=== PATIENT | female | born 1940 | race Caucasian/White ===

== ENCOUNTER 2017-05-28 12:52 | Emergency (ER) | payer MEDICARE, OTHER ==
[~2017-05-28] VITALS: Ht 170.2 cm; Wt 88.6 kg
[2017-05-28 13:46] VITALS: BP 182/76; PULSE 18; PULSE 95; RESP 18; TEMP 98.5; O2SAT 96
--- NOTE | 2017-05-28 14:14 | PD ---
HPI Chief Complaint: Injury Time Seen by Provider: 14:01 Travel History International Travel<30 days: No Contact w/Intl Traveler<30days: No Traveled to known affect area: No History of Present Illness HPI 76-year-old female presents emergency department with ongoing left elbow pain currently in a sugar tong splint for reported fracture status post pulling up we would mats at her house. Patient states this happened about a week ago when she heard something "pop". Patient went to [facility], had x-rays performed, and splint placed. She went to her own orthopedic DrSteve Hanson, and was informed he "does not do elbows". Patient is concerned about getting close follow-up. She did call the [facility], and has an appointment on 12 June. Pain is 6 out of 10. Patient denies numbness or tingling of the right hand. She does not have a sling on the cast. She is allergic to chloroquine. [facility] Social History Alcohol Use: Yes Tobacco Use: No Substance Use: No Allergies-Medications (Allergen,Severity, Reaction): Coded Allergies: chlorquinaldol (Verified Allergy, Unknown, 05/28/17) Reported Meds & Prescriptions Reported Meds & Active Scripts Active Reported Fenofibrate 160 Mg Tab 160 Mg PO DAILY Glipizide 5 Mg Tab 2.5 Mg PO DAILY Take 30 minutes before a meal Glipizide 5 Mg Tab 5 Mg PO DAILY Take 30 minutes before a meal Mobic (Meloxicam) 7.5 Mg Tab 7.5 Mg PO DAILY Flexeril (Cyclobenzaprine HCl) 5 Mg Tab 5 Mg PO DAILY Requip (Ropinirole HCl) 0.25 Mg Tab 0.25 Mg PO BID Hydrocodon-Acetamin 7.5-325/15 (Hydrocodone/Acetaminophen) 7.5 Mg-325 Mg/15 Ml ( 15 Ml) Solution DIRECTED Celexa (Citalopram Hydrobromide) 10 Mg Tab 20 Mg PO DAILY Review of Systems Except as stated in HPI: all other systems reviewed are Neg General / Constitutional: No: Fever Eyes: No: Visual changes HENT: No: Headaches Cardiovascular: No: Chest Pain or Discomfort Respiratory: No: Shortness of Breath Gastrointestinal: No: Abdominal Pain Genitourinary: No: Dysuria Musculoskeletal: Positive: Arthralgias, Limited ROM, Pain (See history of present illness per) Skin: No Rash Neurologic: No: Weakness Psychiatric: No: Depression Endocrine: No: Polydipsia Hematologic/Lymphatic: No: Easy Bruising Physical Exam Narrative GENERAL: Patient appears in no obvious distress per SKIN: Warm and dry. Normal color. Normal turgor. HEAD: Atraumatic. Normocephalic. EYES: Pupils equal and round. No scleral icterus. No injection or drainage. ENT: No nasal bleeding or discharge. Mucous membranes pink and moist. NECK: Trachea midline. No JVD. CARDIOVASCULAR: Regular rate and rhythm. RESPIRATORY: No accessory muscle use. Clear to auscultation. Breath sounds equal bilaterally. GASTROINTESTINAL: Abdomen soft, non-tender, nondistended. Hepatic and splenic margins not palpable. MUSCULOSKELETAL: Extremities without clubbing, cyanosis, or edema. No obvious deformities. Right elbow splint is maintained. Patient has normal neurovascular exam of the right hand and fingers. Normal case preparer and liner strength is noted on the right. NEUROLOGICAL: Awake and alert. No obvious cranial nerve deficits. Motor grossly within normal limits. Five out of 5 muscle strength in the arms and legs. Normal speech. PSYCHIATRIC: Appropriate mood and affect; insight and judgment normal. Data Data Last Documented VS Vital Signs Date Time Temp Pulse Resp B/P (MAP) Pulse Ox O2 Delivery O2 Flow Rate FiO2 05/28/17 13:46 98.5 95 18 182/76 (111) 96 Orders Orders Elbow, Limited (Ap&Lat) (05/28/17 14:14) Splint Or Brace Apply/Monitor (05/28/17 14:14) [facility] Medical Decision Making Medical Screen Exam Complete: Yes Emergency Medical Condition: Yes Differential Diagnosis Right elbow sprain. Right elbow fracture. Need for orthopedic follow-up Narrative Course Repeat x-rays are obtained of the right elbow Sling is placed over the cast that is currently in place. Right elbow x-ray shows lateral epicondyle avulsion fracture. Recommend patient try calling Dr. Urbina's office for follow-up versus keeping her appointment with Dr. Doyle's office on the . Patient should maintain the splint and sling until that appointment Patient should use ice to the area as well as take Tylenol as needed for pain. Diagnosis Primary Impression: Avulsion fracture of lateral epicondyle of humerus Qualified Codes: S42.434D - Nondisplaced fracture (avulsion) of lateral epicondyle of right humerus, subsequent encounter for fracture with routine healing Referrals: Mesfin Urbina MD Patient Instructions: General Instructions, Splint Care (ED) Additional Instructions: Repeat x-rays are obtained of the right elbow Sling is placed over the cast that is currently in place. Right elbow x-ray shows lateral epicondyle avulsion fracture. Recommend patient try calling Dr. Urbina's office for follow-up versus keeping her appointment with Dr. Doyle's office on the . Patient should maintain the splint and sling until that appointment Patient should use ice to the area as well as take Tylenol as needed for pain. Disposition: 01 DISCHARGE HOME Condition: Stable Peng Melchor May 28, 2017 14:14
[2017-05-28] MEDS ORDERED: CELE10TA PO (14:19)
[2017-05-28] MEDS ORDERED: MOBI7.5T PO (14:22)
[2017-05-28] MEDS ORDERED: CYCL5TAB PO (14:22)
[2017-05-28] MEDS ORDERED: HYDR1SOL6 (14:22)
[2017-05-28] MEDS ORDERED: ROPI.25 PO (14:22)
[2017-05-28] MEDS ORDERED: GLIP5TAB8 PO (14:24)
[2017-05-28] MEDS ORDERED: FENO160T PO (14:24)
--- NOTE | 2017-05-28 15:17 | RADRPT ---
EXAM DATE/TIME: 05/28/2017 14:43 [facility] COMPARISON: No previous studies available for comparison. INDICATIONS : Right elbow pain after pulling. MEDICAL HISTORY : None. SURGICAL HISTORY : None. ENCOUNTER: Initial ACUITY: 4 - 6 days PAIN SCORE: 7/10 LOCATION: Right lateral elbow FINDINGS: There is a bone fragment adjacent to the lateral epicondyle of the right distal humerus consistent wi th possible avulsion fracture. Clinical correlation is recommended. CONCLUSION: Bone fragment adjacent to the lateral epicondyle of the right distal humerus consiste nt with possible avulsion fracture. Clinical correlation is recommended. Rishabh Hutchinson MD on May 28, 2017 at 15:06 Board Certified Radiologist. This report was verified electronically.
== END 2017-05-28 15:19 | disposition home or self-care (01) ==
LOC: NEPK 12:52
DX: S42.434A Nondisplaced fracture (avulsion) of lateral epicondyle of right humerus, initial encounter for closed fracture (principal); X58.XXXA Exposure to other specified factors, initial encounter
CPT/HCPCS: 73070; 99283

== ENCOUNTER → 2017-07-27 | Outpatient (CLI) | payer MEDICARE, OTHER ==
[~2017-07-27] MED LIST: AMOX500T PO; CELE10TA PO; CELE200C PO; CITA20TA4 PO; CYCL5TAB PO; DIAZ5TAB PO; FENO160T PO; FENO50TA PO; GLIP5TAB8 PO; HYDR-3580 PO; HYDR1SOL6; LIDO1PAD52 TOPICAL; MOBI7.5T PO; OMEP40CA2 PO; ROPI.25 PO; ROPI2TAB PO
[2017-07-27 08:58] LABS: BILIRUBIN, URINE NEG (NEG); BLOOD, URINE NEG (NEG); GLUCOSE,URINE NEG (NEG); KETONE, URINE NEG (NEG); NITRITE,URINE NEG (NEG); PH, URINE 6.5 (5.0-8.5); SQUAMOUS EPITHELIAL CELL URINE <1 /hpf (0-5); URINE COLOR LIGHT-YELLOW (YELLW/STRAW); URINE LEUKOCYTE ESTERASE NEG (NEG)
[2017-07-27 09:11] LABS: PROTHROMBIN TIME - PATIENT 10.2 SEC (9.8-11.6)
[2017-07-27 09:11] LABS: HEMATOCRIT 42.6 % (35.0-46.0); HEMOGLOBIN 14.5 GM/DL (11.6-15.3); MEAN CORPUSCULAR HEMOGLOBIN 31.3 PG (27.0-34.0); MEAN CORPUSCULAR HGB CONC 34.1 % (32.0-36.0); MEAN PLATELET VOLUME 9.6 FL (7.0-11.0); PLATELET COUNT 265 TH/MM3 (150-450); RED BLOOD COUNT 4.64 MIL/MM3 (4.00-5.30); RED CELL DISTRIBUTION WIDTH 12.4 % (11.6-17.2); WHITE BLOOD COUNT 6.3 TH/MM3 (4.0-11.0)
[2017-07-27 09:27] LABS: CALCIUM 10.3 MG/DL (8.5-10.1); CREATININE 0.9 MG/DL (0.50-1.00)
--- NOTE | 2017-07-27 15:44 | EKG ---
Date Performed: 07/27/2017 Time Performed: 08:39:22 PTAGE: 76 years EKG: Sinus rhythm WITH SINUS ARRHYTHMIA NORMAL ECG Since the PREVIOUS TRACING , no significant change noted PREVIOUS TRACIN06/12/1996 14.12 DOCTOR: Justin Miner Interpretating Date/Time 07/27/2017 15:43:04
== END ==
LOC: CPRE 08:03
PROVIDERS: ATTEND Orthopaedic Surgery
DX: Z01.810 Encounter for preprocedural cardiovascular examination (principal); Z01.812 Encounter for preprocedural laboratory examination; Z01.818 Encounter for other preprocedural examination; M16.12 Unilateral primary osteoarthritis, left hip; M79.609 Pain in unspecified limb
CPT/HCPCS: 36415; 80048; 81001; 85027; 85610; 85730; 93005

== ENCOUNTER 2017-08-06 05:20 | Inpatient (IN) | payer MEDICARE, OTHER ==
[~2017-08-06] VITALS: Ht 170.2 cm; Wt 91.6 kg
[~2017-08-06 05:20] MED LIST changes: -CELE10TA PO; -FENO160T PO; -HYDR1SOL6; -MOBI7.5T PO; -ROPI.25 PO
[2017-08-06] MEDS ORDERED: GENTAMICIN SULFATE 80 MG/2 ML VIAL ONE (05:57)
[2017-08-06] MEDS ORDERED: MIDAZOLAM HCL 2 MG/2 ML VIAL ONE (06:25)
[2017-08-06] MEDS ORDERED: PROPOFOL 500 MG/50 ML INJ 0 ML ONE (06:25)
[2017-08-06] MEDS ORDERED: ACETAMINOPHEN 1000 MG/100 ML 100 ML IV ONE (06:25)
[2017-08-06] MEDS ORDERED: FAMOTIDINE 20 MG/2 ML VIAL ONE (06:26)
[2017-08-06] MEDS ORDERED: METOPROLOL TARTRATE 25 MG TAB PO PRN (06:30)
[2017-08-06] MEDS ORDERED: LACTATED RINGER'S 1000 ML IV PRN (06:30)
[2017-08-06] MEDS ORDERED: ceFAZolin 2 GM PREMIX 50 ML IV SCH (06:30)
[2017-08-06] MEDS ORDERED: POVIDONE IODINE 5% (ANTISEPSIS KIT) 4 APPLICATIONS EACH NARE PRN (06:30)
[2017-08-06] MEDS ORDERED: CHLORHEXIDINE GLUCONATE 2 % 1 PACK (2 CLOTHS) TOPICAL PRN (06:30)
[2017-08-06] MEDS ORDERED: SODIUM CHLORID 0.9% 500 ML IV PRN (06:30)
[2017-08-06] MEDS ORDERED: CHLORHEXIDINE GLUCONATE 4% SOLN 120 ML BTL TOPICAL SCH (06:30)
[2017-08-06] MEDS ORDERED: TRANEXAMIC ACID IV SCH ×2 (07:00→10:00)
[2017-08-06] MEDS ORDERED: MORPHINE SULFATE 4 MG/ML INJ IV PUSH PRN (07:00)
[2017-08-06] MEDS ORDERED: TRANEXAMIC ACID INJ 0 MG in SODIUM CHLORIDE 0.9% INJ 100 ML IV SCH (07:00)
[2017-08-06] MEDS ORDERED: SODIUM CHLORIDE 0.9% IV SCH ×2 (07:00→10:00)
[2017-08-06] MEDS ORDERED: EXPAREL PERI-ARTICULAR INJECTION (TOTAL VOL. 100 ML) P-ARTICULR SCH ×2 (07:00)
[2017-08-06] MEDS ORDERED: MAGNESIUM HYDROXIDE SUSP 30 ML CUP PO PRN (07:00)
--- NOTE | 2017-08-06 07:03 | HHI.FF ---
Face to Face Verification Diagnosis: (1) Status post total replacement of left hip Physical Therapy Gait training Hip: Total hip, Protocol: Left, Posterior hip precautions, Progress to weight bearing Canvas Knee Splint: When in bed & 2 pillows btw thighs Left LE Weight Bearing: WB as tolerated Nursing Nursing: Dressing changes Dressing Changes: Daily dressing change, Coverderm/Primapore Additional Instructions Do not remove Dermabond Prineo. I have seen patient Madonna Goyal on 08/06/17. My clinical findings support the need for the requested home health care services because: Ltd mobility - disease progression Limited ability to care for self High risk of falls I certify that my clinical findings support that this patient is homebound because: Post-op weakness Unsteady gait/balance Unsafe to leave home unassisted Nani Pa MD ([facility]) Aug 06, 2017 07:03
[2017-08-06] MEDS ORDERED: HYDROmorphone HCL PF 2 MG/ML VIAL ONE (08:02)
[2017-08-06] MEDS: CITALOPRAM HYDROBROMIDE 20 MG TAB PO SCH (09:00)
[2017-08-06] MEDS: KETOROLAC TROMETHAMINE 30 MG/ML (IVP) VIAL IVP SCH ×3 (09:00→20:38)
[2017-08-06] MEDS ORDERED: CYCLOBENZAPRINE HCL 10 MG TAB PO PRN (09:00)
[2017-08-06] MEDS ORDERED: ASPIRIN EC 81 MG TABEC PO SCH (09:00)
[2017-08-06] MEDS ORDERED: PANTOPRAZOLE SOD 40 MG DELAYED RELEASE TAB PO PRN (09:00)
[2017-08-06] MEDS ORDERED: ACETAMINOPHEN/HYDROcodone 325 MG/7.5 MG TAB PO PRN (09:00)
[2017-08-06] MEDS ORDERED: ONDANSETRON ODT 4 MG TAB PO PRN (09:30)
--- NOTE | 2017-08-06 09:31 | PD.OP ---
Operative Report Date of Surgery: Aug 06, 2017 Preoperative Diagnosis: (1) Primary osteoarthritis of left hip Postoperative Diagnosis: (1) Primary osteoarthritis of left hip Procedure: Left total hip arthroplasty with Coleman prosthesis Anesthesia: General endotracheal with supplemental local with Exparel Surgeon: Joshua Pa MD Cardiovascular Disease Specialist(s): STEFANIE Gupta Operation and Findings: Indications and Findings: This 76-year-old woman has had left hip pain for the past 4-5 years which has been nonresponsive to conservative measures and has progressively worsened over time. Her ambulation tolerance is significantly limited. She has pain in the left hip in the groin with pain on walking pain and pain ambulate and activities of daily living. She has been treated with analgesics, anti-inflammatory agents, activity modification, intra-articular corticosteroids and ambulatory aids. She has not responded to conservative measures. Physical findings showed limited range of motion of the left hip with tenderness on motion, a positive Juan test and an antalgic gait. Radiographic findings showed severe osteoarthritis with loss of articular cartilage to expose subchondral bone and there being subchondral edema in the acetabulum and femur with osteophytes. Operative findings: There is severe arthritis in the left hip with exposed subchondral bone in the acetabulum and the femur. There isosteophyte formation. There is eburnation. Implants: The acetabular component was a 50 mm external diameter Tritanium cluster shell with a 36 mm inner diameter, 0 X3 polyethylene liner. The femoral component was an Accolade 2 stem, size 4 with a 132 neck angle. The femoral head was Biolox Delta, 36 mm external diameter with a -5 mm offset. The patient was brought to the clean air operating suite and a general endotracheal anesthetic was administered. The patient was positioned into a lateral position with the operative hip up on a DesignGooroo lateral positioner. The hip and lower extremity were prepped with alcohol, Hibiclens and ChloraPrep and draped in the usual manner with the hip draped free. Patient received prophylactic antibiotics preoperatively. The patient also received tranexamic acid preoperatively. An appropriate timeout procedure was carried out. An incision was made from the midportion of the greater trochanter proximally and posteriorly paralleling the fibers of the gluteus holly. The incision was deepened through subcutaneous tissues down to the fascia criilo and gluteus fascia. The gluteus fascia was then split longitudinally in line with its fibers up to the upper portion of the fascia cirilo. With wound towels in place, the Charnley retractor was inserted. The sciatic nerve was identified and protected throughout the procedure. Dissection was then carried down to the interval between the gluteus minimus and the piriformis. A retractor was inserted. The piriformis and obturator conjoined tendon was released from the greater trochanter and reflected off the capsule. A capsulotomy was made longitudinally along the femoral neck to the base of the femoral neck and then curved distally along the posterior aspect of the greater trochanter. The hip was internally rotated. Further release of the external rotators was carried out exposing the hip. The hip was dislocated. The femoral neck was transected at the appropriate level using the oscillating saw placement of appropriate retractors. The femoral head was removed. Preparation of the femur was initiated with a box osteotome followed by a curet to identify the medullary canal. Broaching was then initiated with the size 0 broach and went in 1 size increments up to size 4. The broach handle was removed. The femoral neck was then trimmed with a calcar planar. Attention was then directed to the acetabulum. Soft tissues were debrided from the acetabulum. Retractors were placed about the acetabulum. Reaming was then initiated with the 43 millimeter reamer and went in 1-2 mm increments up to the 50 millimeter diameter reamer. A trial reduction with the 50 millimeter trial prosthesis was carried out. When this was deemed to be appropriate, the trial prosthesis was removed. The acetabulum was irrigated and cleaned. The actual prosthesis as noted above was impacted into place and seated appropriately. Drill holes were made and sounded. Appropriate sized screws were inserted to stabilize the acetabulum further. The liner as noted above was inserted into the acetabular shell and impacted into place. Osteophytes were trimmed from the acetabulum. Local anesthetic was administered throughout the area of the acetabulum and anterior aspect of the femur. The trial neck was placed on the broach for the above-noted prosthesis. The femoral head trial was placed onto the femoral neck . A trial reduction was carried out. Adjustment was made as needed. The stability, leg length and motion were excellent. There was no pistoning. The trial prosthesis was removed. The broach was removed. The femoral component was impacted into the medullary canal of the femur after irrigation and suctioning. When this was appropriately seated a trial reduction was again carried out with the trial prosthesis. There was no pistoning. The leg length was appropriate. The stability and motion were excellent. The trial prosthesis was then removed. After cleaning and drying the trunion of the femoral component, the above-noted femoral head was impacted onto the trunnion. The hip was reduced. The stability and mobility were again checked along with leg lengths as noted above. The hip was positioned appropriately and closure commenced after the remainder of the local anesthetic was injected throughout the hip. The external rotators and capsule were repaired with #1 Vicryl interrupted transosseous sutures with a Krakw technique to reattach the external rotators and capsule to the posterior aspect of the greater trochanter. The capsule itself on the superior aspect was closed with #1 Vicryl interrupted [id number] sutures. The sciatic nerve was inspected. The fascia cirilo and gluteus fascia were repaired with #1 Vicryl interrupted [id number] sutures. The subcutaneous tissues were closed with 2-0 Vicryl interrupted simple sutures with buried knots. The skin was closed with a continuous subcuticular closure of 4-0 Monocryl. The wound was then approximated with Dermabond Prineo. A silver impregnated dressing was applied to the hip. A knee immobilizer was applied to the leg. The patient was transferred from the operating room to the recovery room in satisfactory condition having tolerated the procedure well. Counts are correct. Specimens: None. Estimated blood loss: 200 mL Nani Pa MD ([place]) Aug 06, 2017 09:31
[2017-08-06] MEDS ORDERED: HYDR-3580 PO (09:35)
[2017-08-06] MEDS ORDERED: ECASA81 PO (09:35)
[2017-08-06] MEDS ORDERED: DO NOT ADM ANY ANTICOAGULANT DRUGS PRN (09:42)
[2017-08-06] MEDS: LACTATED RINGER'S 1000 ML INJ 1,000 ML IV SCH ×2 (10:00→20:39)
[2017-08-06] MEDS ORDERED: BISACODYL 10 MG SUPP RECTAL PRN (10:00)
[2017-08-06] MEDS ORDERED: Post-op Orders (for Pharmacy) XX ONE (10:00)
--- NOTE | 2017-08-06 10:19 | RADRPT ---
EXAM DATE: 08/06/2017 10:16 AM EDT AGE/SEX: 76 years / Female INDICATIONS: Post operative left hip. CLINICAL DATA: This is the patient's initial encounter. Patient reports that signs and symptoms have been present for 1 day and indicates a pain score of Nonresponsive. MEDICAL/SURGICAL HISTORY: None. . Total right hip replacement. COMPARISON: No prior exams available for comparison. FINDINGS: There is a left total hip prosthesis present. The acetabular component is secured by a single screw s uperiorly. The acetabular and femoral components appear well placed. There is some hypertrophic worthy e seen superior to the greater trochanter. CONCLUSION: Good placement of a left total hip prosthesis. Electronically signed by: Dada Feliz MD 08/06/2017 10:18 AM EDT
--- NOTE | 2017-08-06 10:35 | PD.CONS ---
HPI Service [facility] Hospitalists Consult Requested By Dr. Pa, Orthopedic service Reason for Consult Assist with medical management Primary Care Physician Cayetano Castellanos M.D. Diagnoses: History of Present Illness This is a 76 yo female with a PMHX significant for DM, HLD, RLS and severe osteoarthritis of the left hip who tried and failed numerous attempts at conservative treatment of her left hip pain and underwent an elective left total hip arthroplasty performed by Dr. Pa today. Hospitalist services have been consulted to assist with ongoing medical management. Patient is still very groggy in PACU and is not a very good historian at present. She denies any complaints of pain at present. She denies any fever or chills. She denies any chest pain or dyspnea. She denies any nausea, vomiting or abdominal pain. She lives alone and uses a cane to aid with ambulation. Review of Systems Except as stated in HPI: all other systems reviewed are Neg Past Family Social History Allergies: Coded Allergies: chlorquinaldol (Verified Allergy, Unknown, ANXIETY AND SEVERE INTERNAL MUSCLE SPASMS, 08/06/17) atorvastatin (Verified Adverse Reaction, Unknown, MUSCLE ACHES AND PAINS, 08/06/17) metoclopramide (Verified Adverse Reaction, Unknown, ANXIETY, 08/06/17) Past Medical History Osteoarthritis left hip DM HLD RLS Depression/Anxiety Past Surgical History Partial hysterectomy 1979 Bladder repair Cholecystectomy 1997 Right temporal artery bx 2004 Right knee arthroscopy [address] MODESTO [address] Hanson Cataract sx Reported Medications Hydrocodone-Acetamin 7.5-325 (Hydrocodone/Acetaminophen) 7.5 Mg-325 Mg Tablet 1 Tab PO Q4H PRN Amoxicillin 500 Mg Tab 4 Tab PO ONCE TAKE ONE HOUR PRIOR TO DENTAL WORK Lidocaine Patch 12 HR (Lidocaine) 5 % Patch 1 Patch TOPICAL DAILY Remove patch after 12 hours Diazepam 5 Mg Tab 5 Mg PO HS PRN Ropinirole 2 Mg Tab 2 Mg PO BID Hydrocodone-Acetamin 7.5-325 (Hydrocodone/Acetaminophen) 7.5 Mg-325 Mg Tablet 1 Tab PO TID Citalopram (Citalopram Hydrobromide) 20 Mg Tab 20 Mg PO DAILY Celebrex (Celecoxib) 200 Mg Cap 200 Mg PO BID PRN Omeprazole 40 Mg Cap 40 Mg PO DAILY PRN Tricor (Fenofibrate) 145 Mg Tab 145 Mg PO HS Takw with food. Glipizide 5 Mg Tab 2.5 Mg PO HS Take 30 minutes before a meal Glipizide 5 Mg Tab 5 Mg PO DAILY Take 30 minutes before a meal Flexeril (Cyclobenzaprine HCl) 5 Mg Tab 0.5-1 Tab PO BID PRN Active Ordered Medications Current Medications Medications (Trade) Dose Ordered Sig/Maged Route Start Time Stop Time Status Last Admin Lactated Ringer's 1,000 ml @ 30 mls/hr Q24H PRN IV 08/06/17 06:30 08/09/17 06:29 08/06/17 06:10 Sodium Chloride 500 ml @ 30 mls/hr [id number] PRN IV 08/06/17 06:30 08/09/17 06:29 (Lopressor) 25 mg GRADER MARKER PRN PO 08/06/17 06:30 08/09/17 06:29 (Betadine 5% Antisepsis Kit) 1 applic GRADER MARKER PRN EACH NARE 08/06/17 06:30 08/09/17 06:29 08/06/17 06:15 (Chlorhexidine 2% Cloth) 3 pack GRADER MARKER PRN TOPICAL 08/06/17 06:30 08/09/17 06:29 08/06/17 06:05 (Hibiclens 4% Top Soln) 1 applic ONCE TOPICAL 08/06/17 06:30 08/09/17 06:29 08/06/17 06:34 Cefazolin Sodium/ Dextrose 50 ml @ 100 mls/hr GRADER MARKER IV 08/06/17 06:30 08/07/17 06:29 08/06/17 07:19 Tranexamic Acid 916 mg/Sodium Chloride 109.16 ml @ 200 mls/ hr ONCE IV 08/06/17 07:00 08/06/17 13:00 08/06/17 07:11 Tranexamic Acid 916 mg/Sodium Chloride 109.16 ml @ 200 mls/ hr ONCE IV 08/06/17 10:00 08/06/17 16:00 Bupivacaine Liposome 20 ml/ Sodium Chloride 100 ml @ 200 mls/hr ONCE P-ARTICULR 08/06/17 07:00 08/06/17 13:00 08/06/17 07:35 Lactated Ringer's 1,000 ml @ 80 mls/hr [id number] IV 08/06/17 09:00 08/06/17 10:00 Cefazolin Sodium 1000 mg/Sodium Chloride 110 ml @ 220 mls/hr Q6H IV 08/06/17 13:00 08/07/17 01:29 (Morphine Inj) 4 mg Q3H PRN IV PUSH 08/06/17 07:00 ([place]cliff 7.5-325 Mg) 1 tab Q4H PRN PO 08/06/17 09:00 ([place]iff 7.5-325 Mg) 2 tab Q4H PRN PO 08/06/17 09:00 (Toradol Inj) 15 mg Q6H IVP 08/06/17 09:00 08/08/17 03:01 08/06/17 09:00 (Zofran Odt) 4 mg Q6H PRN PO 08/06/17 09:30 (Colace) 100 mg BID PO 08/07/17 21:00 (Ambien) 5 mg HS PRN PO 08/06/17 21:00 (Dulcolax Supp) 10 mg DAILY PRN RECTAL 08/06/17 10:00 (Milk Of Magnesia Liq) 30 ml DAILY PRN PO 08/06/17 07:00 (Ecotrin Ec) 81 mg BID PO 08/06/17 09:00 (CeleBREX) 200 mg BID PRN PO 08/06/17 07:00 UNV (CeleXA) 20 mg DAILY PO 08/06/17 09:00 (Flexeril) 2.5 mg BID PRN PO 08/06/17 09:00 (Valium) 5 mg HS PRN PO 08/06/17 21:00 (Tricor) 145 mg HS PO 08/06/17 21:00 (Glucotrol) 2.5 mg HS PO 08/06/17 21:00 (Glucotrol) 5 mg DAILY PO 08/06/17 10:00 (Lidoderm 5% Patch.12 Hr) 1 patch DAILY T-DERMAL 08/06/17 09:00 (Requip) 2 mg BID PO 08/06/17 10:00 (Protonix) 40 mg DAILY PRN PO 08/06/17 09:00 Miscellaneous Information 1 Q24H T-DERMAL 08/06/17 21:00 ([facility] Nursing Information) ALL NURSING DEPARTME... UNSCH PRN .XX 08/06/17 09:42 08/07/17 09:41 Family History Father, age 64, lung cancer Mother, , complications from rheumatoid arthritis Siblings x 2, lung cancer, CVA Sister, lupus, RA, OA Social History Patient is . She denies any tobacco use, EtOH consumption or illicit drug use. Physical Exam Vital Signs Vital Signs Date Time Temp Pulse Resp B/P (MAP) Pulse Ox O2 Delivery O2 Flow Rate FiO2 08/06/17 06:10 97.6 95 20 157/72 (100) 94 Physical Exam GENERAL: This is a well-nourished, well-developed overweight female patient, in no apparent distress. Lethargic in PACU. Appears comfortable. SKIN: No rashes, ecchymoses or lesions. Cool and dry. HEAD: Atraumatic. Normocephalic. No temporal or scalp tenderness. EYES: Pupils equal round and reactive. Extraocular motions intact. No scleral icterus. No injection or drainage. ENT: Nose without bleeding or purulent drainage. Throat without erythema, tonsillar hypertrophy or exudate. Uvula midline. Airway patent. NECK: Trachea midline. No lymphadenopathy. Supple, nontender, no meningeal signs. CARDIOVASCULAR: Tachycardic without murmurs, gallops, or rubs. RESPIRATORY: Fair air entry. Clear to auscultation. Breath sounds equal bilaterally. No wheezes, rales, or rhonchi. GASTROINTESTINAL: Abdomen soft, non-tender, nondistended. No hepato-splenomegaly , or palpable masses. No guarding. MUSCULOSKELETAL: Extremities without clubbing, cyanosis, or edema. No calf tenderness. s/p left MODESTO with incision covered by postop dressing that is C/D/ I. LLE in knee immobilizer. Distal pulses 2+. NEUROLOGICAL: Lethargic. Cranial nerves II through XII grossly intact. Motor and sensory grossly within normal limits. No focal neurologic findings appreciated. Normal speech. Imaging Last Impressions Hip X-Ray 08/06/17 0656 Signed Impressions: CONCLUSION: Good placement of a left total hip prosthesis. Assessment and Plan Assessment and Plan 76 yo female with a PMHX significant for DM, HLD, RLS and severe osteoarthritis of the left hip who tried and failed numerous attempts at conservative treatment and underwent an elective left total hip arthroplasty performed by Dr. Pa today. Hospitalist services have been consulted to assist with ongoing medical management. Severe osteoarthritis left hip, tried and failed numerous attempts at conservative treatment s/p elective left total hip arthroplasty by Dr. Pa -management per Ortho -pain management with bowel regimen -PT eval/tx per ortho -monitor for wound healing -monitor CBC for postop anemia of acute blood loss DM, poorly controlled at present, BS 246 -continue on home dose of Glipizide -accucheks and ISS -monitor blood sugar trend -change to heart health diabetic diet -obtain HgbA1c Hypertensive, no reported hx of HTN -Vasotec IV or Clonidine po prn with parameters -continue to monitor BP and may need to initiate antihypertensive treatment if indicated HLD -continue on Tricor RLS -continue on home dose of Requip Depression/Anxiety -continue patient on home dose of Celexa -continue patient on Diazepam prn DVT prophylaxis -bilateral SCDs and ASA 81mg BID per Ortho Thank you very kindly for this consultation. We will continue to follow patient along with you. Discussed Condition With patient, nursing staff and Sara Fenton Aug 06, 2017 10:35
[2017-08-06] MEDS ORDERED: INSULIN ASPART 1,000 UNITS/10 ML VIAL SQ ONE (10:42)
[2017-08-06] MEDS ORDERED: DEXTROSE 50% IN WATER 50 ML VIAL(D50) IV PUSH PRN (10:45)
[2017-08-06] MEDS ORDERED: GLUCAGON 1 MG/ML VIAL OTHER PRN (10:45)
[2017-08-06] MEDS ORDERED: *morphine SULFATE 8 MG/ML PERIprocedure ONLY ONE (10:51)
[2017-08-06 11:20] VITALS: BP 141/74; PULSE 84; RESP 18; TEMP 97.3; O2SAT 95
[2017-08-06] MEDS ORDERED: cloNIDine HCL 0.1 MG TAB PO PRN (11:30)
[2017-08-06] MEDS ORDERED: ENALAPRILAT 1.25 MG/ML VIAL IV PUSH PRN (11:30)
[2017-08-06] MEDS ORDERED: ONDANSETRON HCL 4 MG/2 ML VIAL IV PUSH ONE (12:00)
[2017-08-06] MEDS ORDERED: ROCURONIUM INJ 50 MG/5 ML SYRINGE IV PUSH ONE (12:00)
[2017-08-06] MEDS ORDERED: KETOROLAC TROMETHAMINE 30 MG/ML (IVP) VIAL IV PUSH ONE (12:00)
[2017-08-06] MEDS ORDERED: DEXAMETHASONE SOD PHOS 4 MG/ML VIAL IV ONE (12:00)
[2017-08-06] MEDS ORDERED: LACTATED RINGER'S 1000 ML INJ 1,000 ML IV ONE (12:00)
[2017-08-06] MEDS ORDERED: PROPOFOL 200 MG/20 ML AMP IV ONE (12:00)
[2017-08-06] MEDS ORDERED: ESMOLOL HCL 100 MG/10 ML VIAL IV ONE (12:00)
[2017-08-06] MEDS ORDERED: GLYCOPYRROLATE 1 MG/5 ML SYRINGE IV PUSH ONE (12:00)
[2017-08-06] MEDS ORDERED: NEOSTIGMINE 5 MG/5 ML SYRINGE IV PUSH ONE (12:00)
[2017-08-06] MEDS ORDERED: LIDOCAINE HCL 1% PF 5 ML SYRINGE OTHER ONE (12:00)
[2017-08-06] MEDS: INSULIN ASPART SUPPLEMENTAL SCALE SQ SCH ×3 (12:00→21:03)
[2017-08-06] MEDS: CEFAZOLIN INJ 1,000 MG in SODIUM CHLORIDE 0.9% INJ 100 ML IV SCH ×2 (13:00→18:05)
[2017-08-06] MEDS: glipiZIDE 5 MG TAB PO SCH ×2 (13:14→20:37)
[2017-08-06] MEDS: ACETAMINOPHEN/HYDROcodone 325 MG/7.5 MG TAB PO PRN ×2 (13:40→20:38)
[2017-08-06] MEDS: LIDOCAINE HCL 5% PATCH T-DERMAL SCH (15:47)
[2017-08-06] MEDS: CELECOXIB 200 MG CAP PO SCH (16:42)
[2017-08-06 20:00] VITALS: BP 162/72; PULSE 96; RESP 18; TEMP 97.7; O2SAT 95
[2017-08-06] MEDS: FENOFIBRATE 145 MG TAB PO SCH (20:38)
[2017-08-06] MEDS: REMOVE OLD LIDOCAINE PATCH T-DERMAL SCH (20:39)
[2017-08-06] MEDS ORDERED: DIAZEPAM 5 MG TAB PO PRN (21:00)
[2017-08-06] MEDS ORDERED: ZOLPIDEM TARTRATE 5 MG TAB PO PRN (21:00)
[2017-08-07] VITALS (7 sets, daily range): BP systolic 127–171; BP diastolic 57–73; PULSE 93–100; RESP 16–18; TEMP 97.3–98.8; O2SAT 93–98
[2017-08-07] MEDS: CEFAZOLIN INJ 1,000 MG in SODIUM CHLORIDE 0.9% INJ 100 ML IV SCH (00:49)
[2017-08-07] MEDS: ACETAMINOPHEN/HYDROcodone 325 MG/7.5 MG TAB PO PRN ×4 (02:20→21:41)
[2017-08-07] MEDS: KETOROLAC TROMETHAMINE 30 MG/ML (IVP) VIAL IVP SCH ×4 (02:21→20:49)
[2017-08-07 05:43] LABS: BICARBONATE 25.5 MEQ/L (21.0-32.0); BLOOD UREA NITROGEN 17 MG/DL (7-18); CALCIUM 10.2 MG/DL (8.5-10.1); CHLORIDE 102 MEQ/L (98-107); CREATININE 0.95 MG/DL (0.50-1.00); GLOMERULAR FILTRATION RATE 57 ML/MIN (>89); GLUCOSE,RANDOM 156 MG/DL (74-106); SODIUM (NA) 138 MEQ/L (136-145)
--- NOTE | 2017-08-07 07:21 | PD.ORT.PN ---
Subjective Post Op Day #: 1 Subjective Remarks She is doing well. She has minimal complaints. She has been out of bed walking to the bathroom several times in the evening. There is some pain but not a great deal. She lives alone so she wants to go to a long-term facility for initial rehabilitation until she is stable. Distance Walked 70 feet with PT. Objective Vitals Vital Signs Date Time Temp Pulse Resp B/P (MAP) Pulse Ox O2 Delivery O2 Flow Rate FiO2 08/07/17 04:00 97.4 93 18 129/60 (83) 94 08/07/17 00:00 97.3 99 17 127/57 (80) 93 08/06/17 20:30 Room Air 08/06/17 20:00 97.7 96 18 162/72 (102) 95 08/06/17 18:08 18 08/06/17 15:39 18 08/06/17 11:20 97.3 84 18 141/74 (96) 95 08/06/17 11:00 84 16 144/60 (88) 99 Nasal Cannula 2 08/06/17 10:45 82 16 163/77 (105) 98 Nasal Cannula 2 08/06/17 10:30 82 16 172/79 (110) 99 Nasal Cannula 2 08/06/17 10:15 102 16 161/68 (99) 98 Nasal Cannula 2 08/06/17 10:00 86 16 141/65 (90) 98 Nasal Cannula 2 08/06/17 09:42 97.6 84 16 166/73 (104) 94 Nasal Cannula 2 I/O 08/06/17 08/06/17 08/06/17 08/07/17 08/07/17 08/07/17 07:00 15:00 23:00 07:00 15:00 23:00 Intake Total 250 ml 590 ml Output Total 200 ml 300 ml Balance 50 ml -300 ml 590 ml Intake Oral 480 ml IV Total 100 ml 110 ml Other 150 ml Output Urine Total 300 ml Estimated Blood Loss 200 ml # Voids 1 4 # Bowel Movements 0 Result Diagram: 08/07/17 0451 08/07/17 0457 Imaging Last 72 hours Impressions Hip X-Ray 08/06/17 0656 Signed Impressions: CONCLUSION: Good placement of a left total hip prosthesis. Objective Remarks She has been out of bed walking well with the walker and the standby assistance of the nursing assistants. She sits appropriately from a standing position. The neurovascular status is intact. The dressing is dry and intact. Assessment & Plan Ortho Post Op Day #: 1 Problem List: (1) Primary osteoarthritis of left hip ICD Codes: M16.12 - Unilateral primary osteoarthritis, left hip Status: Resolved (2) Status post total replacement of left hip ICD Codes: Z96.642 - Presence of left artificial hip joint Plan: Continue postop care and PT. Assessment and Plan Condition: Good. Orthopedically stable. DVT prophylaxis: TEDs, aspirin, sequentials. Discharge plans: Home with home health care after a short stay in a long-term facility. An appointment was scheduled through the office. Prescriptions: [place] 7.5/325 Nani Pa MD (Charles) Aug 07, 2017 07:21
[2017-08-07] MEDS: INSULIN ASPART SUPPLEMENTAL SCALE SQ SCH ×4 (07:54→21:01)
[2017-08-07] MEDS: ASPIRIN EC 81 MG TABEC PO SCH ×2 (08:15→20:49)
[2017-08-07] MEDS: CELECOXIB 200 MG CAP PO SCH (08:16)
[2017-08-07] MEDS: CITALOPRAM HYDROBROMIDE 20 MG TAB PO SCH (08:16)
[2017-08-07] MEDS: glipiZIDE 5 MG TAB PO SCH ×2 (08:16→20:49)
[2017-08-07] MEDS: LIDOCAINE HCL 5% PATCH T-DERMAL SCH (08:17)
[2017-08-07] MEDS: LACTATED RINGER'S 1000 ML INJ 1,000 ML IV SCH ×2 (08:18→20:49)
[2017-08-07] MEDS: REMOVE OLD LIDOCAINE PATCH T-DERMAL SCH (08:18)
[2017-08-07 11:25] LABS: HEMOGLOBIN A1C 7.2 % (4.3-6.0)
[2017-08-07] MEDS ORDERED: CYCLOBENZAPRINE HCL 10 MG TAB PO ONE (18:30)
--- NOTE | 2017-08-07 18:31 | HHI.PR ---
Subjective Remarks Follow-up for left total hip arthroplasty, diabetes, hypertension. Patient complains of left hip spasms throughout the hip and thigh. She states she had spasms when she had her right hip done also. She states Flexeril has worked for her in the past and she actually has this medication at home as needed. She otherwise denies any other medical complaints. Denies any fever/chills, lightheadedness, chest pain, shortness of breath, or abdominal complaints. She is tolerating oral intake. Discussed with RN. Objective Vitals Vital Signs Date Time Temp Pulse Resp B/P (MAP) Pulse Ox O2 Delivery O2 Flow Rate FiO2 08/07/17 16:00 98.1 99 16 151/67 (95) 98 08/07/17 12:00 97.3 100 16 137/62 (87) 94 08/07/17 08:00 96 Room Air 08/07/17 08:00 98.8 98 16 142/66 (91) 96 08/07/17 04:00 97.4 93 18 129/60 (83) 94 08/07/17 00:00 97.3 99 17 127/57 (80) 93 08/06/17 20:30 Room Air 08/06/17 20:00 97.7 96 18 162/72 (102) 95 I/O 08/06/17 08/06/17 08/06/17 08/07/17 08/07/17 08/07/17 06:59 14:59 22:59 06:59 14:59 22:59 Intake Total 250 ml 590 ml 720 ml Output Total 200 ml 300 ml Balance 50 ml -300 ml 590 ml 720 ml Intake Oral 480 ml 720 ml IV Total 100 ml 110 ml Other 150 ml Output Urine Total 300 ml Estimated Blood Loss 200 ml # Voids 1 4 6 # Bowel Movements 0 Result Diagram: 08/07/17 0451 08/07/17 0457 Imaging Last Impressions Hip X-Ray 08/06/17 0656 Signed Impressions: CONCLUSION: Good placement of a left total hip prosthesis. Objective Remarks GENERAL: Well-nourished, well-developed pleasant elderly female patient in [facility]. SKIN: Warm and dry. No rash. HEENT: Normocephalic. Atraumatic. Mucous membranes pink and moist. CARDIOVASCULAR: Regular rate and rhythm. No murmur appreciated. RESPIRATORY: No accessory muscle use. Clear to auscultation. Breath sounds equal bilaterally. GASTROINTESTINAL: Abdomen soft, non-tender, nondistended. Normoactive bowel sounds x4. MUSCULOSKELETAL: No obvious deformities. Extremities without clubbing, cyanosis , or edema. Left lateral hip with surgical dressing in place, CDI. NEUROLOGICAL: Awake and alert. No obvious cranial nerve deficits. Moving all extremities spontaneously. Normal speech. PSYCHIATRIC: Appropriate mood and affect; insight and judgment normal. Procedures 08/06/17 -left total hip arthroplasty by Dr. Pa Medications and IVs Current Medications Medications (Trade) Dose Ordered Sig/Maged Route Start Time Stop Time Status Last Admin Lactated Ringer's 1,000 ml @ 30 mls/hr Q24H PRN IV 08/06/17 06:30 08/09/17 06:29 08/06/17 06:10 Sodium Chloride 500 ml @ 30 mls/hr [id number] PRN IV 08/06/17 06:30 08/09/17 06:29 (Lopressor) 25 mg BUFFET WAITER/WAITRESS PRN PO 08/06/17 06:30 08/09/17 06:29 (Betadine 5% Antisepsis Kit) 1 applic BUFFET WAITER/WAITRESS PRN EACH NARE 08/06/17 06:30 08/09/17 06:29 08/06/17 06:15 (Chlorhexidine 2% Cloth) 3 pack BUFFET WAITER/WAITRESS PRN TOPICAL 08/06/17 06:30 08/09/17 06:29 08/06/17 06:05 (Hibiclens 4% Top Soln) 1 applic ONCE TOPICAL 08/06/17 06:30 08/09/17 06:29 08/06/17 06:34 Lactated Ringer's 1,000 ml @ 80 mls/hr [id number] IV 08/06/17 09:00 08/06/17 10:00 (Morphine Inj) 4 mg Q3H PRN IV PUSH 08/06/17 07:00 (Hurley 7.5-325 Mg) 1 tab Q4H PRN PO 08/06/17 09:00 (Hurley 7.5-325 Mg) 2 tab Q4H PRN PO 08/06/17 09:00 08/07/17 16:49 (Toradol Inj) 15 mg Q6H IVP 08/06/17 09:00 08/08/17 03:01 08/07/17 14:11 (Zofran Odt) 4 mg Q6H PRN PO 08/06/17 09:30 (Colace) 100 mg BID PO 08/07/17 21:00 (Ambien) 5 mg HS PRN PO 08/06/17 21:00 (Dulcolax Supp) 10 mg DAILY PRN RECTAL 08/06/17 10:00 (Milk Of Magnesia Liq) 30 ml DAILY PRN PO 08/06/17 07:00 (CeleBREX) 200 mg DAILY PO 08/06/17 17:00 08/07/17 08:16 (CeleXA) 20 mg DAILY PO 08/06/17 09:00 08/07/17 08:16 (Flexeril) 2.5 mg BID PRN PO 08/06/17 09:00 (Valium) 5 mg HS PRN PO 08/06/17 21:00 (Tricor) 145 mg HS PO 08/06/17 21:00 08/06/17 20:38 (Glucotrol) 2.5 mg HS PO 08/06/17 21:00 08/06/17 20:37 (Glucotrol) 5 mg DAILY PO 08/06/17 10:00 08/07/17 08:16 (Lidoderm 5% Patch.12 Hr) 1 patch DAILY T-DERMAL 08/06/17 09:00 08/06/17 15:47 (Requip) 2 mg BID PO 08/06/17 10:00 08/07/17 08:16 (Protonix) 40 mg DAILY PRN PO 08/06/17 09:00 08/06/17 13:14 Miscellaneous Information 1 Q24H T-DERMAL 08/06/17 21:00 08/06/17 20:39 (D50w (Vial) Inj) 50 ml UNSCH PRN IV PUSH 08/06/17 10:45 (Glucagon Inj) 1 mg UNSCH PRN OTHER 08/06/17 10:45 (NovoLOG SUPPLEMENTAL SCALE) 1 ACHS SLIDING SCALE SQ 08/06/17 12:00 08/07/17 16:50 (Ecotrin Ec) 81 mg BID PO 08/07/17 09:00 08/07/17 08:15 (Vasotec Inj) 1.25 mg Q6H PRN IV PUSH 08/06/17 11:30 (Catapres) 0.1 mg Q6H PRN PO 08/06/17 11:30 A/P Assessment and Plan 76 yo female with a PMH significant for DM, HLD, RLS and severe osteoarthritis of the left hip who tried and failed numerous attempts at conservative treatment and underwent an elective left total hip arthroplasty performed by Dr. Pa 08/06. Hospitalist services have been consulted to assist with ongoing medical management. Severe osteoarthritis left hip s/p left total hip arthroplasty: surgery done by Dr. Pa -continue management per Ortho -pain management with bowel regimen -PT eval/tx, plan for d/c to rehab on 08/09 -post op Hgb 12.0, stable -DVT prophylaxis per ortho DM: poorly controlled upon arrival with BS 246 -continue on home dose of Glipizide -accucheks and SSI -monitor blood glucose trend -diabetic diet -HgbA1c 7.2 -BG improving Hypertensive, no reported hx of HTN. Suspect secondary to pain. -Vasotec IV or Clonidine po prn with parameters -continue to monitor BP and may need to initiate antihypertensive treatment if indicated HLD -continue on Tricor RLS -continue on home dose of Requip Depression/Anxiety -continue patient on home dose of Celexa -continue patient on Diazepam prn Muscle Spasms: acute -likely secondary to surgery -Ca 10.2, will repeat labs tomorrow -give Flexeril 5mg po bid prn -monitor for improvement DVT prophylaxis-bilateral SCDs and ASA 81mg BID per Ortho Discharge Planning Plan for discharge to SNF on 08/09 per ortho. Maribell Will PA-C Aug 07, 2017 18:31
[2017-08-07] MEDS: DOCUSATE SODIUM 100 MG CAP PO SCH (20:48)
[2017-08-07] MEDS: FENOFIBRATE 145 MG TAB PO SCH (20:48)
[2017-08-08] MEDS: KETOROLAC TROMETHAMINE 30 MG/ML (IVP) VIAL IVP SCH (03:22)
[2017-08-08 04:50] VITALS: BP 157/70; PULSE 93; RESP 18; TEMP 98.6; O2SAT 95
[2017-08-08] MEDS: ACETAMINOPHEN/HYDROcodone 325 MG/7.5 MG TAB PO PRN ×4 (05:38→21:07)
--- NOTE | 2017-08-08 07:29 | PD.ORT.PN ---
Subjective Post Op Day #: 2 Subjective Remarks She is doing well, other than some spasms in the thigh. She has minimal complaints, otherwise. She lives alone and still wants to go to a prison facility for initial rehabilitation until she is stable. Distance Walked 115 feet with PT. Objective Vitals Vital Signs Date Time Temp Pulse Resp B/P (MAP) Pulse Ox O2 Delivery O2 Flow Rate FiO2 08/08/17 04:50 98.6 93 18 157/70 (99) 95 08/07/17 23:00 98.4 94 17 171/73 (105) 94 08/07/17 20:41 Room Air 08/07/17 20:00 98.1 93 18 135/62 (86) 94 08/07/17 16:00 98.1 99 16 151/67 (95) 98 08/07/17 12:00 97.3 100 16 137/62 (87) 94 08/07/17 08:00 96 Room Air 08/07/17 08:00 98.8 98 16 142/66 (91) 96 I/O 08/07/17 08/07/17 08/07/17 08/08/17 08/08/17 08/08/17 07:00 15:00 23:00 07:00 15:00 23:00 Intake Total 590 ml 720 ml 720 ml Balance 590 ml 720 ml 720 ml Intake Oral 480 ml 720 ml 720 ml IV Total 110 ml # Voids 4 6 7 # Bowel Movements 0 0 Result Diagram: 08/07/17 0451 08/07/17 0457 Imaging Last 72 hours Impressions Hip X-Ray 08/06/17 0656 Signed Impressions: CONCLUSION: Good placement of a left total hip prosthesis. Objective Remarks She is resting comfortably, supine in bed. The neurovascular status is intact. The dressing is dry and intact. Assessment & Plan Ortho Post Op Day #: 2 Problem List: (1) Primary osteoarthritis of left hip ICD Codes: M16.12 - Unilateral primary osteoarthritis, left hip Status: Resolved (2) Status post total replacement of left hip ICD Codes: Z96.642 - Presence of left artificial hip joint Plan: Continue postop care and PT. Assessment and Plan Condition: Good. Orthopedically stable. DVT prophylaxis: TEDs, aspirin, sequentials. Discharge plans: Home with home health care after a short stay in a prison facility. An appointment was scheduled through the office. Prescriptions: [place] 7.5/325 Nani Pa MD ([place]) Aug 08, 2017 07:29
[2017-08-08 08:00] VITALS: BP 133/61; PULSE 86; RESP 16; TEMP 97.9; O2SAT 97
[2017-08-08] MEDS: CELECOXIB 200 MG CAP PO SCH (08:07)
[2017-08-08] MEDS: glipiZIDE 5 MG TAB PO SCH ×2 (08:07→21:01)
[2017-08-08] MEDS: ASPIRIN EC 81 MG TABEC PO SCH ×2 (08:07→21:01)
[2017-08-08] MEDS: CYCLOBENZAPRINE HCL 10 MG TAB PO PRN ×2 (08:07→17:00)
[2017-08-08] MEDS: DOCUSATE SODIUM 100 MG CAP PO SCH ×2 (08:07→21:02)
[2017-08-08] MEDS: CITALOPRAM HYDROBROMIDE 20 MG TAB PO SCH (08:09)
[2017-08-08] MEDS: LIDOCAINE HCL 5% PATCH T-DERMAL SCH (08:09)
[2017-08-08 09:11] LABS: AUTOMATED NEUTROPHIL # 5.6 TH/MM3 (1.8-7.7); BASOPHIL # 0.1 TH/MM3 (0-0.2); EOSINOPHIL # 0.1 TH/MM3 (0-0.4); EOSINOPHIL % 1.3 % (0.0-4.0); HEMATOCRIT 33.2 % (35.0-46.0); HEMOGLOBIN 11.2 GM/DL (11.6-15.3); LYMPH % 22.2 % (9.0-44.0); LYMPHOCYTE # 1.8 TH/MM3 (1.0-4.8); MEAN CELL VOLUME 92.7 FL (80.0-100.0); MEAN CORPUSCULAR HEMOGLOBIN 31.3 PG (27.0-34.0); MEAN CORPUSCULAR HGB CONC 33.8 % (32.0-36.0); MEAN PLATELET VOLUME 9.2 FL (7.0-11.0); MONO % 8.1 % (0.0-8.0); MONOCYTE # 0.7 TH/MM3 (0-0.9); NEUT % 67.4 % (16.0-70.0); PLATELET COUNT 223 TH/MM3 (150-450); RED BLOOD COUNT 3.59 MIL/MM3 (4.00-5.30); RED CELL DISTRIBUTION WIDTH 12.3 % (11.6-17.2); WHITE BLOOD COUNT 8.3 TH/MM3 (4.0-11.0)
[2017-08-08] MEDS: INSULIN ASPART SUPPLEMENTAL SCALE SQ SCH ×4 (09:27→21:02)
[2017-08-08 09:30] LABS: BICARBONATE 25.7 MEQ/L (21.0-32.0); CALCIUM 9.5 MG/DL (8.5-10.1); CREATININE 0.73 MG/DL (0.50-1.00); MAGNESIUM 2.1 MG/DL (1.5-2.5)
[2017-08-08] MEDS: LACTATED RINGER'S 1000 ML INJ 1,000 ML IV SCH ×2 (09:55→23:30)
--- NOTE | 2017-08-08 10:33 | HHI.PR ---
Subjective Remarks Follow-up for left total hip arthroplasty, diabetes, hypertension. Patient is seen ambulating with help of PT this morning. She reports her pain is alleviated with pain medication, hip spasms improved this morning with Flexeril. She denies any fevers, chills, nausea, vomiting, diarrhea, headaches , dizziness, shortness of breath, cough or chest pain. Plans for DC tomorrow to SNF. Objective Vitals Vital Signs Date Time Temp Pulse Resp B/P (MAP) Pulse Ox O2 Delivery O2 Flow Rate FiO2 08/08/17 04:50 98.6 93 18 157/70 (99) 95 08/07/17 23:00 98.4 94 17 171/73 (105) 94 08/07/17 20:41 Room Air 08/07/17 20:00 98.1 93 18 135/62 (86) 94 08/07/17 16:00 98.1 99 16 151/67 (95) 98 08/07/17 12:00 97.3 100 16 137/62 (87) 94 I/O 08/07/17 08/07/17 08/07/17 08/08/17 08/08/17 08/08/17 07:00 15:00 23:00 07:00 15:00 23:00 Intake Total 590 ml 720 ml 720 ml Balance 590 ml 720 ml 720 ml Intake Oral 480 ml 720 ml 720 ml IV Total 110 ml # Voids 4 6 7 # Bowel Movements 0 0 Result Diagram: 08/08/17 0752 08/08/17 0810 Imaging Last Impressions Hip X-Ray 08/06/17 0656 Signed Impressions: CONCLUSION: Good placement of a left total hip prosthesis. Objective Remarks GENERAL: Well-nourished, well-developed pleasant elderly female patient in [facility]. SKIN: Warm and dry. No rash. HEENT: Normocephalic. Mucous membranes pink and moist. CARDIOVASCULAR: Regular rate and rhythm. No murmur appreciated. RESPIRATORY: No accessory muscle use. Clear to auscultation. Breath sounds equal bilaterally. GASTROINTESTINAL: Abdomen soft, non-tender, nondistended. Normoactive bowel sounds x4. MUSCULOSKELETAL: No obvious deformities. Extremities without clubbing, cyanosis , or edema. Left lateral hip with surgical dressing in place, CDI. NEUROLOGICAL: Awake and alert. No obvious cranial nerve deficits. Moving all extremities spontaneously. Normal speech. PSYCHIATRIC: Appropriate mood and affect; insight and judgment normal. Procedures 08/06/17 -left total hip arthroplasty by Dr. Pa A/P Assessment and Plan 76 yo female with a PMH significant for DM, HLD, RLS and severe osteoarthritis of the left hip who tried and failed numerous attempts at conservative treatment and underwent an elective left total hip arthroplasty performed by Dr. Pa 08/06. Hospitalist services have been consulted to assist with ongoing medical management. Severe osteoarthritis left hip s/p left total hip arthroplasty: surgery done by Dr. Pa -continue management per Ortho -pain management with bowel regimen -PT eval/tx, plan for d/c to rehab on 08/09 -post op Hgb 12.0-->11.2, stable -DVT prophylaxis per ortho DM: poorly controlled upon arrival with BS 246 -continue on home dose of Glipizide -accucheks and SSI -monitor blood glucose trend -diabetic diet -HgbA1c 7.2 -BG fluctuate but stable Hypertensive, no reported hx of HTN. Suspect secondary to pain. -BP fluctuating, suspect due to pain. As needed Vasotec and clonidine with parameters HLD -continue on Tricor RLS -continue on home dose of Requip Depression/Anxiety -continue patient on home dose of Celexa -continue patient on Diazepam prn Muscle Spasms: acute -likely secondary to surgery -Ca 10.2, recheck 9.5 -Continue Flexeril 5mg po bid prn -Muscle spasms improved DVT prophylaxis-bilateral SCDs and ASA 81mg BID per Ortho Discussed with patient and RN. Discharge Planning Plans for discharge tomorrow to SNF. Justyna Lawler Aug 08, 2017 10:33
[2017-08-08 12:00] VITALS: BP 159/70; PULSE 84; RESP 16; TEMP 98.4; O2SAT 95
[2017-08-08 20:00] VITALS: BP 147/67; PULSE 111; RESP 18; TEMP 98.1; O2SAT 96
[2017-08-08] MEDS: REMOVE OLD LIDOCAINE PATCH T-DERMAL SCH (20:58)
[2017-08-08] MEDS: FENOFIBRATE 145 MG TAB PO SCH (21:01)
[2017-08-09 00:01] VITALS: BP 145/64; PULSE 99; RESP 18; TEMP 98.8; O2SAT 93
[2017-08-09] MEDS: ACETAMINOPHEN/HYDROcodone 325 MG/7.5 MG TAB PO PRN ×5 (02:31→20:48)
[2017-08-09 04:00] VITALS: BP 125/60; PULSE 95; RESP 18; TEMP 97.9; O2SAT 96
--- NOTE | 2017-08-09 07:15 | PD.ORT.PN ---
Subjective Post Op Day #: 3 Subjective Remarks She is doing well. She has minimal complaints. She still has difficulty raising the operative leg independently. She lives alone and still wants to go to a jail facility for initial rehabilitation until she is stable. Distance Walked 140 feet in the morning and 180 feet in the afternoon with PT. Objective Vitals Vital Signs Date Time Temp Pulse Resp B/P (MAP) Pulse Ox O2 Delivery O2 Flow Rate FiO2 08/09/17 04:00 97.9 95 18 125/60 (81) 96 08/09/17 00:01 98.8 99 18 145/64 (91) 93 08/08/17 21:05 Room Air 08/08/17 20:00 98.1 111 18 147/67 (93) 96 08/08/17 12:00 98.4 84 16 159/70 (99) 95 08/08/17 08:00 97.9 86 16 133/61 (85) 97 I/O 08/08/17 08/08/17 08/08/17 08/09/17 08/09/17 08/09/17 07:00 15:00 23:00 07:00 15:00 23:00 Intake Total 720 ml Balance 720 ml Intake Oral 720 ml # Voids 7 4 # Bowel Movements 0 Result Diagram: 08/08/17 0752 08/08/17 0810 Imaging Last 72 hours Impressions Hip X-Ray 08/06/17 0656 Signed Impressions: CONCLUSION: Good placement of a left total hip prosthesis. Objective Remarks She is resting comfortably, supine in bed. The neurovascular status is intact. The dressing is dry and intact. The wound is clean and dry and healing well. There is no sign of infection. Assessment & Plan Ortho Post Op Day #: 3 Problem List: (1) Primary osteoarthritis of left hip ICD Codes: M16.12 - Unilateral primary osteoarthritis, left hip Status: Resolved (2) Status post total replacement of left hip ICD Codes: Z96.642 - Presence of left artificial hip joint Plan: Continue postop care and PT. Assessment and Plan Condition: Good. Orthopedically stable. DVT prophylaxis: TEDs, aspirin, sequentials. Discharge plans: Home with home health care after a short stay in a jail facility. An appointment was scheduled through the office. Prescriptions: [place] 7.5/325 Nani Pa MD ([place]) Aug 09, 2017 07:15
[2017-08-09] MEDS: DOCUSATE SODIUM 100 MG CAP PO SCH ×2 (07:28→20:45)
[2017-08-09] MEDS: glipiZIDE 5 MG TAB PO SCH ×2 (07:28→20:45)
[2017-08-09] MEDS: CELECOXIB 200 MG CAP PO SCH (07:28)
--- NOTE | 2017-08-09 07:28 | HHI.DS ---
Discharge Summary Admission Date Aug 06, 2017 at 05:20 Discharge Date: Aug 09, 2017 Admitting Diagnosis Primary osteoarthritis, left hip. Diagnosis: (1) Primary osteoarthritis of left hip Diagnosis: Principal ICD Codes: M16.12 - Unilateral primary osteoarthritis, left hip Status: Resolved (2) Status post total replacement of left hip Diagnosis: Principal ICD Codes: Z96.642 - Presence of left artificial hip joint Procedures Left total hip arthroplasty using Nubia prosthesis on 08/06/2017 Brief History This is a 76 year old female patient has had long-standing pain in the left hip progressively worsening over the past few years. She has not responded to conservative, nonoperative methods of treatment including anti-inflammatory agents, analgesics, exercise and ambulatory aids. Physical findings showed limited range of motion with a significantly antalgic gait and tenderness on range of motion. X-ray showed severe osteoarthritis with loss of articular cartilage to [id number], eburnation and osteophytes. CBC/BMP: 08/08/17 0752 08/08/17 0810 Significant Findings Laboratory Tests Test 08/07/17 04:51 08/07/17 04:57 08/08/17 07:52 08/08/17 08:10 Random Glucose 156 MG/DL (74-106) 188 MG/DL (74-106) Calcium Level 10.2 MG/DL (8.5-10.1) Estimat Glomerular Filtration Rate 57 ML/MIN (>89) 78 ML/MIN (>89) Hemoglobin A1c 7.2 % (4.3-6.0) Red Blood Count 3.59 MIL/MM3 (4.00-5.30) Hemoglobin 11.2 GM/DL (11.6-15.3) Hematocrit 33.2 % (35.0-46.0) Monocytes (%) (Auto) 8.1 % (0.0-8.0) Imaging Postoperative x-rays of the hip showed good position and alignment of the prosthesis. PE at Discharge She is resting comfortably, supine in bed. The neurovascular status is intact. The dressing is dry and intact. The wound is clean and dry and healing well. There is no sign of infection. Transfer Summary The patient is being transferred to a senior living facility ([facility]) for rehabilitation because she lives alone. Dressing is to be changed on a daily basis being a dry dressing. The Dermabond Prineo is to remain in place. She is to be ambulated and have therapy twice daily. Weightbearing status is full. Posterior total hip precautions are to be observed. She has an appointment for follow-up in her preoperative package. Hospital Course The patient was admitted as noted above. The above noted operative procedure was carried out that day. Preoperatively prophylactic antibiotics were administered Ancef according to protocol. These were continued postoperatively. The patient also received tranexamic acid to help with hemostasis according to protocol. In the postanesthesia care unit mechanical methods of DVT prophylaxis in the form of NENA stockings and sequentials were initiated. Physical therapy was initiated on the day of surgery. On postoperative day #1 physical therapy continued. DVT prophylaxis with aspirin 81 mg was initiated at this time. The patient continued physical therapy throughout the hospitalization. The distance walked and range of motion improved throughout the hospitalization. At the conclusion of the second postoperative day she had walked 140 feet in the morning and 160 feet in the afternoon. The patient was discharged on postoperative day 3 with the disposition being to a senior living facility for rehabilitation ([facility]). An appointment for follow-up was made prior to admission. Pt Condition on Discharge: Good Discharge Disposition: Discharge to SNF Discharge Instructions Diet Instructions: As Tolerated, No Restrictions Activities You Can Perform: Full Weight Bearing, Shower Only-No Bath Activities to Avoid: Lifting/Bending, Strenuous Activity, Bathing, Driving Follow up Referrals: Orthopedics with Nani Pa MD (Charles) New Medications: Aspirin DR (Aspirin DR) 81 Mg Tabdr 81 MG PO BID for Prevent Blood Clot for 30 Days, #60 TAB Hydrocodone/Acetaminophen (Hydrocodone-Acetamin 7.5-325) 7.5 Mg-325 Mg Tablet 1 TAB PO Q4H PRN for PAIN SCALE 1 TO 10, #30 TAB Continued Medications: Amoxicillin (Amoxicillin) 500 Mg Tab 4 TAB PO ONCE for Infection, TAB 0 Refills TAKE ONE HOUR PRIOR TO DENTAL WORK Celecoxib (Celebrex) 200 Mg Cap 200 MG PO BID PRN for PAIN SCALE 4 TO 10, CAP 0 Refills Citalopram (Citalopram) 20 Mg Tab 20 MG PO DAILY for Control Depression, #30 TAB 0 Refills Cyclobenzaprine (Flexeril) 5 Mg Tab 0.5-1 TAB PO BID PRN for MUSCLE SPASM, #90 TAB 0 Refills Diazepam (Diazepam) 5 Mg Tab 5 MG PO HS PRN for ANXIETY, TAB 0 Refills Fenofibrate (Tricor) 145 Mg Tab 145 MG PO HS, #30 TAB 0 Refills Takw with food. Glipizide (Glipizide) 5 Mg Tab 5 MG PO DAILY for Blood Sugar Management, #30 TAB 0 Refills Take 30 minutes before a meal Glipizide (Glipizide) 5 Mg Tab 2.5 MG PO HS for Blood Sugar Management, #30 TAB 0 Refills Take 30 minutes before a meal Lidocaine Patch 12 HR (Lidocaine Patch 12 HR) 5 % Patch 1 PATCH TOPICAL DAILY for Pain Management, #1 BOX 0 Refills Remove patch after 12 hours Omeprazole (Omeprazole) 40 Mg Cap 40 MG PO DAILY PRN for REFLUX, #30 CAP 0 Refills Ropinirole (Ropinirole) 2 Mg Tab 2 MG PO BID for RESTLESS LEGS, #90 TAB 0 Refills Discontinued Medications: Hydrocodone/Acetaminophen (Hydrocodone-Acetamin 7.5-325) 7.5 Mg-325 Mg Tablet 1 TAB PO TID for Pain Management Nani Pa MD (Charles) Aug 09, 2017 07:27
[2017-08-09] MEDS: CITALOPRAM HYDROBROMIDE 20 MG TAB PO SCH (07:29)
[2017-08-09] MEDS: ASPIRIN EC 81 MG TABEC PO SCH ×2 (07:29→20:46)
[2017-08-09] MEDS: LIDOCAINE HCL 5% PATCH T-DERMAL SCH (07:32)
[2017-08-09 08:00] VITALS: BP 130/86; PULSE 75; RESP 18; TEMP 97.9; O2SAT 95
[2017-08-09] MEDS: INSULIN ASPART SUPPLEMENTAL SCALE SQ SCH ×4 (08:00→20:46)
[2017-08-09] MEDS: LACTATED RINGER'S 1000 ML INJ 1,000 ML IV SCH (12:00)
[2017-08-09 12:16] VITALS: BP 129/60; PULSE 110; RESP 19; TEMP 98.1; O2SAT 94
[2017-08-09] MEDS ORDERED: MAGNESIUM CITRATE SOLN 300 ML BTL PO ONE (15:00)
[2017-08-09 16:22] VITALS: BP 145/65; PULSE 103; RESP 18; TEMP 98.3; O2SAT 96
[2017-08-09 20:02] VITALS: BP 136/61; PULSE 105; RESP 18; TEMP 98; O2SAT 94
[2017-08-09] MEDS: FENOFIBRATE 145 MG TAB PO SCH (20:45)
[2017-08-09] MEDS: REMOVE OLD LIDOCAINE PATCH T-DERMAL SCH (21:00)
[2017-08-10 00:01] VITALS: BP 143/65; PULSE 93; RESP 17; TEMP 97.1; O2SAT 95
[2017-08-10] MEDS: LACTATED RINGER'S 1000 ML INJ 1,000 ML IV SCH (00:30)
[2017-08-10] MEDS: ACETAMINOPHEN/HYDROcodone 325 MG/7.5 MG TAB PO PRN ×3 (02:22→10:43)
[2017-08-10 04:00] VITALS: BP_SYST 109; BP_SYST 143; BP_DIAS 65; BP_DIAS 67; PULSE 99; RESP 18; TEMP 97.8; O2SAT 95
[2017-08-10] MEDS: INSULIN ASPART SUPPLEMENTAL SCALE SQ SCH (07:19)
[2017-08-10 08:00] VITALS: BP 143/69; PULSE 85; RESP 16; TEMP 97.6; O2SAT 94
[2017-08-10] MEDS: DOCUSATE SODIUM 100 MG CAP PO SCH (08:08)
[2017-08-10] MEDS: ASPIRIN EC 81 MG TABEC PO SCH (08:08)
[2017-08-10] MEDS: glipiZIDE 5 MG TAB PO SCH (08:08)
[2017-08-10] MEDS: CELECOXIB 200 MG CAP PO SCH (08:08)
[2017-08-10] MEDS: CITALOPRAM HYDROBROMIDE 20 MG TAB PO SCH (08:08)
[2017-08-10] MEDS: LIDOCAINE HCL 5% PATCH T-DERMAL SCH (08:09)
--- NOTE | 2017-08-10 09:31 | HHI.PR ---
Subjective Remarks Patient states her pain is controlled well doing well with physical therapy. Objective Vitals Vital Signs Date Time Temp Pulse Resp B/P (MAP) Pulse Ox O2 Delivery O2 Flow Rate FiO2 08/10/17 08:18 Room Air 08/10/17 04:00 97.8 99 18 109/67 (81) 95 08/10/17 00:01 97.1 93 17 143/65 (91) 95 08/09/17 20:50 Room Air 08/09/17 20:02 98.0 105 18 136/61 (86) 94 08/09/17 16:22 98.3 103 18 145/65 (91) 96 08/09/17 12:16 98.1 110 19 129/60 (83) 94 08/09/17 10:10 Room Air I/O 08/09/17 08/09/17 08/09/17 08/10/17 08/10/17 08/10/17 07:00 15:00 23:00 07:00 15:00 23:00 Intake Total 960 ml Balance 960 ml Intake Oral 960 ml # Voids 4 3 3 # Bowel Movements 1 Result Diagram: 08/08/17 0752 08/08/17 0810 Objective Remarks GENERAL: This is a well-nourished, well-developed patient, in no apparent distress. CARDIOVASCULAR: Regular rate and rhythm RESPIRATORY: Clear to auscultation. Breath sounds equal bilaterally. No wheezes , rales, or rhonchi. MUSCULOSKELETAL: Left hip bandage clean dry intact NEURO: Alert & Oriented x4 to person, place, time, situation. Moves all ext x4 Procedures 08/06/17 -left total hip arthroplasty by Dr. Pa A/P Assessment and Plan 76 yo female with a PMH significant for DM, HLD, RLS and severe osteoarthritis of the left hip who tried and failed numerous attempts at conservative treatment and underwent an elective left total hip arthroplasty performed by Dr. Pa 08/06. Hospitalist services have been consulted to assist with ongoing medical management. 1. Severe osteoarthritis left hip s/p left total hip arthroplasty: surgery done 08/[address] Pa -continue postoperative management per Ortho -pain management with bowel regimen -PT eval/tx, -post op Hgb 12.0-->11.2, stable -DVT prophylaxis per ortho 2. DM type II: poorly controlled upon arrival with BS 246 -continue on home dose of Glipizide -Monitoring accucheks and SSI -diabetic diet -HgbA1c 7.2 -BG fluctuate but stable 3. Elevated blood pressure, no reported hx of HTN. Suspect secondary to pain. -BP fluctuating, suspect due to pain. As needed Vasotec and clonidine with parameters 4. Hyperlipidemia, chronic -continue on Tricor 5. RLS -continue on home dose of Requip 6. Depression/Anxiety -continue patient on home dose of Celexa -continue patient on Diazepam prn 7. DVT prophylaxis-bilateral SCDs and ASA 81mg BID per Ortho Discharge Planning To long-term facility [facility] today. Sena Smith MD Aug 10, 2017 09:31
== END 2017-08-10 10:58 | DRG 470 ==
LOC: HSDI 05:20 → N06A 11:23
PROVIDERS: ADMIT Orthopaedic Surgery; ATTEND Orthopaedic Surgery
PROC: 0SRB03Z Replacement of Left Hip Joint with Ceramic Synthetic Substitute, Open Approach (ICD-10-PCS; principal; 2017-08-06 06:52)
DX: M16.12 Unilateral primary osteoarthritis, left hip (principal); E11.65 Type 2 diabetes mellitus with hyperglycemia; E78.5 Hyperlipidemia, unspecified; G25.81 Restless legs syndrome; M25.752 Osteophyte, left hip; R03.0 Elevated blood-pressure reading, without diagnosis of hypertension; M62.838 Other muscle spasm; F32.9 Major depressive disorder, single episode, unspecified; F41.9 Anxiety disorder, unspecified; Z96.641 Presence of right artificial hip joint; Z79.84 Long term (current) use of oral hypoglycemic drugs
CPT/HCPCS: 36415; 73502; 80048; 82948; 83036; 83735; 85014; 85018; 85025; 86850; 86900; 86901; 94150; C1776; C9290; J0131; J0690; J1100; J1170; J1580; J1815; J1885; J2250; J2270; J2405; J2710; J3010; J7120; L1830